=== PATIENT | female | born 1935 | race Caucasian/White ===

== ENCOUNTER 2022-10-18 08:02 | Outpatient (REF) | payer MEDICARE, SELFPAY ==
--- NOTE | ~2022-10-18 | XR_ITS ---
EXAMINATION: XR KNEE, RIGHT CLINICAL INFORMATION: Pain COMPARISON: None available. TECHNIQUE: 3 of the right knee. FINDINGS: Patient is status post right total knee arthroplasty. Significant prepatellar soft tissue swelling is seen with a large joint effusion. Bony structures however appear to be intact. I do not appreciate any evidence for periprosthetic hardware failure or loosening. No fracture or dislocation.. No significant soft tissue gas XR/XR knee RT 3V IMPRESSION: Significant prepatellar soft tissue swelling and large joint effusion. I do not appreciate any acute underlying bony abnormality. Status post total knee arthroplasty.
== END 2022-10-18 08:03 | disposition home or self-care (01) ==
LOC: HO.HOSX 08:02
PROVIDERS: Visit Provider Orthopaedic Surgery
DX: M25.561 Pain in right knee (principal)
CPT/HCPCS: 73562; 99212

== ENCOUNTER 2022-10-18 11:14 | Outpatient (AMB) | payer MEDICARE, SELFPAY ==
--- NOTE | 2022-10-18 11:28 | A.OFFVIS_ITS ---
Intake Intake Visit Reasons: PO-RT TKA 06/09/22 increased pain Intake Note: Mena is an 87 year old female who presents today as a new patient to re- establish care with Dr. Wagner. She had a Right Total Knee Replacement on 06/09/22. Patient rpeots that she has had increased pain for about 3 weeks now. Denies injury. She explains that the pain is felt medially and laterally as well as anteriorly. She is having difficulty bending the knee and has pain with full extension. The patient thinks that she may have aggravated her knee several weeks ago while walking [place] the beach at [facility]. She denies any fevers or chills. She has been taking Tylenol which gives her minimal relief. She denies any locking or giving way. She continues to go to formal physical therapy at [facility] in [place]. Allergies acetaminophen [From Percocet] Allergy (Verified 10/18/22 11:35) Unknown alprazolam [From Xanax] Allergy (Verified 10/18/22 11:35) Unknown codeine Allergy (Verified 10/18/22 11:35) Unknown erythromycin base Allergy (Verified 10/18/22 11:35) Unknown oxycodone [From Percocet] Allergy (Verified 10/18/22 11:35) Unknown Penicillins Allergy (Verified 10/18/22 11:33) Unknown Medication List - Last Reconciled 10/18/22 by Facundo Wagner MD diltiazem HCl ER (DILT-XR) 240 mg PO DAILY doxepin 10 mg PO BEDTIME [facility] Surgical History (Updated 10/18/22 @ 11:36 by Sasha Vasquez QUALITY IMPROVEMENT ANALYST) History of total right knee replacement (06/09/22) Social History (Updated 10/18/22 @ 11:37 by Sasha Vasquez CMA) Patient Tobacco Use Status: Never used Tobacco Current occupational status: retired Physical Exam Const Other: Well-nourished well-developed very friendly female awake alert and oriented x3 in no acute distress Extrem Other: Bilateral lower extremity examination shows good capillary refill, no skin lesi ons noted, normal sensation light touch Right knee examination shows that the surgical incision is well healed, no erythema, range of motion from -3 degrees Results Reviewed Results Reviewed: X-rays of the patient's right knee taken today show a total knee arthroplasty in good position with no signs of loosening, no acute bony abnormalities Assessment & Plan Assessment & Plan (1) Right knee pain: Code(s): M25.561 - Pain in right knee Plan: Ms. Jennings continues to do fairly well after undergoing right total knee replacement surgery on 06/09/2022. She will continue going to formal physical therapy for now. She will gradually transition to a home exercise program. I did give her a refill of her tramadol to help with her discomfort. She does know to take antibiotics before any dental work. I discussed with the patient the fact that her discomfort should continue to improve over the next few months. She will contact me prior to her follow-up appointment in 2 months should any questions or concerns arise. Feel free to call me at any time should questions regarding her orthopedic management arise. I spent 22 minutes in reviewing the patient's records and imaging studies, seeing the patient and documenting in the medical record. Orders: Orders XR knee RT 3V Today M25.561 - Pain in right knee Medications: New tramadol 50 mg PO Q8H PRN 40 tabs 0RF pain Coding Level of Care Code Est Pt Level 2 (22219) Diagnoses Right knee pain M25.561
== END 2022-10-18 12:21 | disposition home or self-care (01) ==
PROVIDERS: Visit Provider Orthopaedic Surgery
DX: M25.561 Pain in right knee (principal)
CPT/HCPCS: 99212

== ENCOUNTER 2023-01-03 11:19 | Outpatient (AMB) | payer MEDICARE, SELFPAY ==
--- NOTE | 2023-01-03 11:22 | MHC.OFFVIS ---
Intake Vital Signs 01/03/23 11:31 Height 5 ft 2 in Weight 140 lb BMI 25.6 Intake Visit Reasons: OV-RT TKA 06/09/22 increased pain Intake Note: Mena is an 87 year old female who presents today for a follow up of her right knee s/p Right TKA 06/09/22. She reports mild intermittent discomfort in her right knee. She has tried tramadol. She stopped the tramadol because she felt like it was causing constipation. She denies any fevers or chills. She has been going to physical therapy. She reports intermittent weakness in her right leg. Allergies acetaminophen [From Percocet] Allergy (Verified 01/03/23 11:23) Unknown alprazolam [From Xanax] Allergy (Verified 01/03/23 11:23) Unknown codeine Allergy (Verified 01/03/23 11:23) Unknown erythromycin base Allergy (Verified 01/03/23 11:23) Unknown oxycodone [From Percocet] Allergy (Verified 01/03/23 11:23) Unknown Penicillins Allergy (Verified 01/03/23 11:23) Unknown Medication List - Last Reconciled 01/03/23 by Facundo Wagner MD celecoxib (Celebrex) 200 mg PO DAILY PRN diltiazem HCl ER (DILT-XR) 240 mg PO DAILY doxepin 10 mg PO BEDTIME tramadol 50 mg PO Q8H PRN PFSH Surgical History (Updated 10/18/22 @ 11:36 by Sasha Vasquez CMA) History of total right knee replacement (06/09/22) Social History (Updated 10/18/22 @ 11:37 by Sasha Vasquez CMA) Patient Tobacco Use Status: Never used Tobacco Current occupational status: retired Physical Exam Vital Signs: BMI result Body Mass Index 25.6 Const Other: Well-nourished well-developed very friendly female awake alert and oriented x3 in no acute distress Extrem Other: Bilateral lower extremity examination shows good capillary refill, no skin lesions noted, normal sensation light touch Right knee examination shows that the surgical incision is well healed, no erythema, range of motion from -3 degrees to 115 degrees, her patella tracks well Results Reviewed Results Reviewed: X-rays of the patient's right knee show a total knee arthroplasty patient with no signs of loosening, no acute bony abnormalities Assessment & Plan Assessment & Plan (1) Right knee pain: Code(s): M25.561 - Pain in right knee Plan Ms. Jennings continues to do fairly well after undergoing right total knee replacement surgery on 06/09/2022. She does remain somewhat weak most likely due to deconditioning. I did have her fitted for a hinged knee brace to help with her symptoms of instability. She does know to take antibiotics before any dental work. I did give her a prescription for Celebrex. She will contact me prior to her follow-up appointment in 2-3 months should any questions or concerns arise. Feel free to call me at any time should questions regarding her orthopedic management arise. I do feel that the brace is medically necessary to help with her instability and to prevent falls. I spent 22 minutes in reviewing the patient's records and imaging studies, seeing the patient and documenting in the medical record. Orders: Orders XR knee RT 3V Today M25.561 - Pain in right knee Medications: New celecoxib (Celebrex) 200 mg PO DAILY PRN 30 caps 2RF pain Coding Level of Care Code Est Pt Level 2 (78148) Diagnoses Right knee pain M25.561
[2023-01-03 11:31] VITALS: BMI 25.6
== END 2023-01-03 11:55 | disposition home or self-care (01) ==
PROVIDERS: PCP Internal Medicine Endocrinology, Diabetes & Metabolism; Visit Provider Orthopaedic Surgery
DX: M25.561 Pain in right knee (principal)
CPT/HCPCS: 99212

== ENCOUNTER 2023-01-03 11:39 | Outpatient (REF) | payer MEDICARE, SELFPAY ==
--- NOTE | ~2023-01-03 | XR_ITS ---
EXAMINATION: XR KNEE, RIGHT CLINICAL INFORMATION: Pain in right knee COMPARISON: Pain in right knee TECHNIQUE: Four views of the right knee. FINDINGS: The patient is status post right total knee arthroplasty. Significant prepatellar soft tissue swelling is again seen. No fracture or dislocation. There are a few tiny new density is seen superior to the patellar button and between the flabella and the posterior aspect of the tibial component. XR/XR knee RT 3V IMPRESSION: 1. Status post right total knee arthroplasty. 2. Significant prepatellar soft tissue swelling is again seen. 3. Tiny densities are now seen superior to the patellar button between the flabella in the posterior aspect of the tibial component.
== END 2023-01-03 11:40 | disposition home or self-care (01) ==
LOC: HO.HOSX 11:39
PROVIDERS: Visit Provider Orthopaedic Surgery
DX: M25.561 Pain in right knee (principal)
CPT/HCPCS: 73562; 99212

== ENCOUNTER 2023-03-07 13:16 | Outpatient (AMB) | payer MEDICARE, SELFPAY ==
--- NOTE | 2023-03-07 13:17 | MHC.OFFVIS ---
Intake Vital Signs 03/07/23 13:32 Height 5 ft 2 in Weight 140 lb BMI 25.6 Intake Visit Reasons: OV-RT TKA 06/09/22 increased pain Intake Note: eMna an 87 year old female presents today for a follow up of right knee s/p right TKA on 06/09/22. Patient reports that she completed PT and pain was fine however she now has an increase of pain. States pain with getting up from a sitting position, stair use, and tenderness in medial aspect as well as no strength. The patient denies any fevers or chills. She would like to return to either knee gym or physical therapy. Allergies acetaminophen [From Percocet] Allergy (Verified 03/07/23 13:34) Unknown alprazolam [From Xanax] Allergy (Verified 03/07/23 13:34) Unknown codeine Allergy (Verified 03/07/23 13:34) Unknown erythromycin base Allergy (Verified 03/07/23 13:34) Unknown oxycodone [From Percocet] Allergy (Verified 03/07/23 13:34) Unknown Penicillins Allergy (Verified 03/07/23 13:34) Unknown Medication List - Last Reconciled 03/07/23 by Facundo Wagner MD celecoxib (Celebrex) 200 mg PO DAILY PRN diltiazem HCl ER (DILT-XR) 240 mg PO DAILY doxepin 10 mg PO BEDTIME tramadol 50 mg PO Q8H PRN PFSH Surgical History History of total right knee replacement (06/09/22) Social History Patient Tobacco Use Status: Never used Tobacco Current occupational status: retired Physical Exam Vital Signs: BMI result Body Mass Index 25.6 Const Other: Well-nourished well-developed very friendly female awake alert and oriented x3 in no acute distress Extrem Other: Bilateral lower extremity examination shows good capillary refill, no skin lesions noted, normal sensation light touch Right knee examination shows that her surgical incision is well healed, no erythema, full active extension and flexion 120 degrees, her patella tracks well Results Reviewed Results Reviewed: X-rays of the patient's right knee taken in December showing total knee arthroplasty in good position with no signs of loosening, no acute bony abnormalities Assessment & Plan Assessment & Plan (1) Physical deconditioning: Code(s): R53.81 - Other malaise Plan: Ms. Jennings continues to do fairly well after undergoing right total knee replacement surgery on 06/09/2022. Patient does have continued diffuse weakness most likely due to overall deconditioning. She has not been doing physical therapy or exercising at the gym. I did recommend that she return to the gym for an exercise program. She agrees with this plan. She does know to take antibiotics before any dental work. She will contact me prior to her follow-up appointment next spring should any questions or concerns arise. Feel free to call me at any time should questions regarding her orthopedic management arise. I spent 22 minutes in reviewing the patient's records and imaging studies, seeing the patient and documenting in the medical record. Coding Level of Care Code Est Pt Level 2 (54212) Diagnoses Physical deconditioning R53.81
[2023-03-07 13:32] VITALS: BMI 25.6
== END 2023-03-07 14:03 | disposition home or self-care (01) ==
PROVIDERS: PCP Internal Medicine Endocrinology, Diabetes & Metabolism; Visit Provider Orthopaedic Surgery
DX: R53.81 Other malaise (principal)
CPT/HCPCS: 99212

== ENCOUNTER → 2023-03-07 13:16 | Outpatient (BNVA) | payer MEDICARE, SELFPAY | PROVIDERS: PCP Internal Medicine Endocrinology, Diabetes & Metabolism; Visit Provider Orthopaedic Surgery | DX: R53.81 Other malaise (principal); Z96.651 Presence of right artificial knee joint | CPT/HCPCS: 99212 ==

== ENCOUNTER 2023-06-13 10:30 | Outpatient (AMB) | payer MEDICARE, SELFPAY ==
[2023-06-13 10:33] VITALS: BMI 25.6
--- NOTE | 2023-06-13 10:33 | MHC.OFFVIS ---
Intake Vital Signs 06/13/23 10:33 Height 5 ft 2 in Weight 140 lb BMI 25.6 Intake Visit Reasons: OV-RT TKA 06/09/22 Intake Note: Mena is a 87 year old female who presents for a follow up after her Right TKA on 06/09/2022. Patient reports she has tenderness to the touch and feels heavy to lift it. She is having the most trouble at night when trying to sleep. The patient also reports intermittent weakness in her right leg. She would like to return to formal physical therapy at [facility]. She states that after completing physical therapy she would like to join a gym to exercise more often. Allergies acetaminophen [From Percocet] Allergy (Verified 06/13/23 10:46) Unknown alprazolam [From Xanax] Allergy (Verified 06/13/23 10:46) Unknown codeine Allergy (Verified 06/13/23 10:46) Unknown erythromycin base Allergy (Verified 06/13/23 10:46) Unknown oxycodone [From Percocet] Allergy (Verified 06/13/23 10:46) Unknown Penicillins Allergy (Verified 06/13/23 10:46) Unknown Medication List - Last Reconciled 06/13/23 by Facundo Wagner MD diltiazem HCl ER (DILT-XR) 240 mg PO DAILY doxepin 10 mg PO BEDTIME [knee high compression stockings As directed] [facility] Surgical History History of total right knee replacement (06/09/22) Social History Patient Tobacco Use Status: Never used Tobacco Current occupational status: retired Physical Exam Vital Signs: BMI result Body Mass Index 25.6 Const Other: Well-nourished well-developed very friendly female awake alert and oriented x3 in no acute distress Extrem Other: Bilateral lower extremity examination shows good capillary refill, no skin lesions noted, normal sensation light touch Right knee examination shows that the surgical incision is well healed, no erythema, full active extension and flexion to 115 degrees, her patella tracks well Results Reviewed Results Reviewed: X-rays of the patient's right knee show a total knee arthroplasty in good position with no signs of loosening, no acute bony abnormalities Assessment & Plan Assessment & Plan (1) Physical deconditioning: Code(s): R53.81 - Other malaise (2) Stiffness of right knee: Code(s): M25.661 - Stiffness of right knee, not elsewhere classified Plan Ms. Jennings continues to do fairly well after undergoing right total knee replacement surgery on 06/09/2022. She does have residual weakness and discomfort most likely due to generalized deconditioning. Thus, I did give her a prescription to go back to formal physical therapy at [facility] in [place]. She does know to take antibiotics before any dental work. She will contact me prior to her follow-up appointment in 3 months should any questions or concerns arise. Feel free to call me at any time should questions regarding her orthopedic management arise. I spent 22 minutes in reviewing the patient's records and imaging studies, seeing the patient and documenting in the medical record. Orders: Orders XR knee RT 3V Today M25.561 - Pain in right knee PT Evaluation and Treatment Today M25.661 - Stiffness of right knee, not elsewhere classified, R53.81 - Other malaise Coding Level of Care Code Est Pt Level 2 (03293) Diagnoses Physical deconditioning R53.81 Stiffness of right knee M25.661
== END 2023-06-13 11:08 | disposition home or self-care (01) ==
PROVIDERS: PCP Internal Medicine Endocrinology, Diabetes & Metabolism; Visit Provider Orthopaedic Surgery
DX: M25.661 Stiffness of right knee, not elsewhere classified (principal); Z96.651 Presence of right artificial knee joint; R53.81 Other malaise
CPT/HCPCS: 99213

== ENCOUNTER 2023-06-13 16:51 | Outpatient (REF) | payer MEDICARE, SELFPAY ==
--- NOTE | ~2023-06-13 | XR_ITS ---
EXAMINATION: XR KNEE, RIGHT CLINICAL INFORMATION: Right knee pain. COMPARISON: 01/03/2023. TECHNIQUE: Three views of the right knee. FINDINGS: Prosthetic components of the total knee arthroplasty are appropriately aligned without periprosthetic fracture or abnormal lucency. No component migration. No joint effusion. XR/XR knee RT 3V IMPRESSION: Appropriate alignment of the total knee arthroplasty without evidence of complications.
== END 2023-06-13 16:52 | disposition home or self-care (01) ==
LOC: HO.HOSX 16:51
PROVIDERS: Visit Provider Orthopaedic Surgery
DX: M25.561 Pain in right knee (principal); R53.81 Other malaise
CPT/HCPCS: 73562; 99212

== ENCOUNTER 2023-09-19 11:29 | Outpatient (AMB) | payer MEDICARE, SELFPAY ==
--- NOTE | 2023-09-19 11:32 | A.OFFVIS_ITS ---
Vital Signs 09/19/23 11:36 Height 5 ft 2 in Weight 140 lb BMI 25.6 Intake Visit Reasons: OV - Right TKA 06/09/2022 Intake Note: Mena is a 88 year old female who presents today for a follow up s/p right TKA 06/09/2022. Patient express she is doing well. She has mild soreness when she rubs her the anterior aspect of her knee. She has completed formal physical therapy. She denies any fevers or chills. She does not take any medicines for discomfort. She does report intermittent weakness in her right leg. Allergies acetaminophen [From Percocet] Allergy (Verified 09/19/23 11:37) Unknown alprazolam [From Xanax] Allergy (Verified 09/19/23 11:37) Unknown codeine Allergy (Verified 09/19/23 11:37) Unknown erythromycin base Allergy (Verified 09/19/23 11:37) Unknown oxycodone [From Percocet] Allergy (Verified 09/19/23 11:37) Unknown Penicillins Allergy (Verified 09/19/23 11:37) Unknown Medication List - Last Reconciled 09/19/23 by Facundo Wagner MD diltiazem HCl ER (DILT-XR) 240 mg PO DAILY doxepin 10 mg PO BEDTIME [knee high compression stockings As directed] [facility] Surgical History History of total right knee replacement (06/09/22) Social History Patient Tobacco Use Status: Never used Tobacco Current occupational status: retired Physical Exam Vital Signs: BMI result Body Mass Index 25.6 Const Other: Well-nourished well-developed very friendly female awake alert and oriented x3 in no acute distress Extrem Other: Bilateral lower extremity examination shows good capillary refill, no skin lesions noted, normal sensation light touch Right knee examination shows that the surgical incision is well healed, no erythema, range of motion from -3 degrees to 115 degrees, no instability Assessment & Plan Assessment & Plan (1) Right knee pain: Code(s): M25.561 - Pain in right knee Category: Medical Plan Ms. Jennings continues to do fairly well after undergoing right total knee replacement surgery. She will continue with her home exercise program. She does know to take antibiotics before any dental work. She will contact me prior to her follow-up appointment in 2 months should any questions or concerns arise. Feel free to call me at any time should questions regarding her orthopedic management arise. I spent 22 minutes in reviewing the patient's records and imaging studies, seeing the patient and documenting in the medical record. Coding Level of Care Code Est Pt Level 3 (38442) Diagnoses Right knee pain M25.561
[2023-09-19 11:36] VITALS: BMI 25.6
== END 2023-09-19 11:54 | disposition home or self-care (01) ==
PROVIDERS: PCP Internal Medicine Endocrinology, Diabetes & Metabolism; Visit Provider Orthopaedic Surgery
DX: M25.561 Pain in right knee (principal); Z96.651 Presence of right artificial knee joint
CPT/HCPCS: 99213

== ENCOUNTER → 2023-09-19 11:29 | Outpatient (BNVA) | payer MEDICARE, SELFPAY | PROVIDERS: PCP Internal Medicine Endocrinology, Diabetes & Metabolism; Visit Provider Orthopaedic Surgery | DX: M25.561 Pain in right knee (principal) | CPT/HCPCS: 99212 ==